=== PATIENT | male | born 1950 | race Caucasian/White ===

== ENCOUNTER 2025-01-27 04:26 | Day surgery (SDC) | payer MEDICARE ==
[2025-01-27] MEDS ORDERED: MEPOLIZUMAB 100 MG VIAL SC SCH (06:00)
[2025-01-27 11:08] VITALS: BP 135/84
[2025-01-27] MEDS ORDERED: Aspir 8181 MG PO (11:09)
[2025-01-27] MEDS ORDERED: ALBU90OI INH (11:09)
[2025-01-27] MEDS ORDERED: BUPR150ER PO (11:10)
[2025-01-27] MEDS ORDERED: ESCI20 PO (11:10)
[2025-01-27] MEDS ORDERED: LOSA25 PO (11:11)
[2025-01-27] MEDS ORDERED: Isosorbide Mono30 MG PO (11:11)
[2025-01-27] MEDS ORDERED: PANT40 PO (11:11)
[2025-01-27] MEDS ORDERED: TAMS.4ER PO (11:12)
[2025-01-27] MEDS ORDERED: NUCALA100 MG SC (11:12)
== END 2025-01-27 11:20 | disposition home or self-care (01) ==
LOC: ATC 04:26
DX: J45.50 Severe persistent asthma, uncomplicated (principal); J82.83 Eosinophilic asthma; J44.89 Other specified chronic obstructive pulmonary disease; G47.33 Obstructive sleep apnea (adult) (pediatric); I25.2 Old myocardial infarction; K21.9 Gastro-esophageal reflux disease without esophagitis; R91.1 Solitary pulmonary nodule; I50.9 Heart failure, unspecified; Z88.8 Allergy status to other drugs, medicaments and biological substances; Z79.82 Long term (current) use of aspirin; Z79.899 Other long term (current) drug therapy
CPT/HCPCS: 96372; J2182

== ENCOUNTER 2025-02-24 03:17 | Day surgery (SDC) | payer MEDICARE ==
[~2025-02-24 03:17] MED LIST: ALBU90OI INH; Aspir 8181 MG PO; BUPR150ER PO; ESCI20 PO; Isosorbide Mono30 MG PO; LOSA25 PO; NUCALA100 MG SC; PANT40 PO; TAMS.4ER PO
[2025-02-24] MEDS ORDERED: MEPOLIZUMAB 100 MG VIAL SC SCH (06:00)
[2025-02-24 11:12] VITALS: BP 146/79
== END 2025-02-24 11:20 | disposition home or self-care (01) ==
LOC: ATC 03:17
DX: J45.50 Severe persistent asthma, uncomplicated (principal); J82.83 Eosinophilic asthma; I50.9 Heart failure, unspecified; G47.33 Obstructive sleep apnea (adult) (pediatric); I25.2 Old myocardial infarction; K21.9 Gastro-esophageal reflux disease without esophagitis; E66.9 Obesity, unspecified; Z68.32 Body mass index [BMI] 32.0-32.9, adult; Z87.891 Personal history of nicotine dependence; Z79.82 Long term (current) use of aspirin; Z79.899 Other long term (current) drug therapy; Z88.8 Allergy status to other drugs, medicaments and biological substances
CPT/HCPCS: 96372; J2182

== ENCOUNTER 2025-05-19 06:21 | Day surgery (SDC) | payer MEDICARE ==
[~2025-05-19 06:21] MED LIST changes: +MEPOLIZUMAB 100 MG VIAL SC SCH
[2025-05-19 10:25] VITALS: BP 128/99
== END 2025-05-19 11:10 | disposition home or self-care (01) ==
LOC: ATC 06:21
DX: J45.50 Severe persistent asthma, uncomplicated (principal); J82.83 Eosinophilic asthma; J44.9 Chronic obstructive pulmonary disease, unspecified; I50.9 Heart failure, unspecified; K21.9 Gastro-esophageal reflux disease without esophagitis; G47.33 Obstructive sleep apnea (adult) (pediatric); E66.9 Obesity, unspecified; Z68.32 Body mass index [BMI] 32.0-32.9, adult; Z87.891 Personal history of nicotine dependence; Z79.82 Long term (current) use of aspirin; Z79.899 Other long term (current) drug therapy; Z88.8 Allergy status to other drugs, medicaments and biological substances
CPT/HCPCS: 96372; J2182

== ENCOUNTER 2025-07-14 09:26 | Day surgery (SDC) | payer MEDICARE ==
[2025-07-14 09:51] VITALS: BP 140/75
== END 2025-07-14 09:56 | disposition home or self-care (01) ==
LOC: ATC 09:26
DX: J82.83 Eosinophilic asthma (principal); Z79.899 Other long term (current) drug therapy; Z87.891 Personal history of nicotine dependence
CPT/HCPCS: 96372; J2182

== ENCOUNTER 2025-09-14 00:52 | Day surgery (SDC) | payer MEDICARE ==
[~2025-09-14 00:52] MED LIST changes: -MEPOLIZUMAB 100 MG VIAL SC SCH
[2025-09-14] MEDS ORDERED: MEPOLIZUMAB 100 MG VIAL SC SCH (06:00)
[2025-09-14 09:33] VITALS: BP 147/74
--- NOTE | 2025-09-14 09:52 | NUR ---
PT GAVE VERBAL PERMISSION FOR STUDENT NURSE TO CARE FOR HIM TODAY.
== END 2025-09-14 09:43 | disposition home or self-care (01) ==
LOC: ATC 00:52
DX: J45.50 Severe persistent asthma, uncomplicated (principal); J82.83 Eosinophilic asthma; I50.9 Heart failure, unspecified; G47.33 Obstructive sleep apnea (adult) (pediatric); I25.2 Old myocardial infarction; J44.9 Chronic obstructive pulmonary disease, unspecified; K21.9 Gastro-esophageal reflux disease without esophagitis; Z87.891 Personal history of nicotine dependence; Z79.82 Long term (current) use of aspirin; Z79.899 Other long term (current) drug therapy; Z88.8 Allergy status to other drugs, medicaments and biological substances
CPT/HCPCS: 96372; 99211; J2182

== ENCOUNTER 2025-10-12 03:38 | Day surgery (SDC) | payer MEDICARE ==
[2025-10-12] MEDS ORDERED: MEPOLIZUMAB 100 MG VIAL SC SCH (06:00)
[2025-10-12 11:10] VITALS: BP 168/72
== END 2025-10-12 11:17 | disposition home or self-care (01) ==
LOC: ATC 03:38
DX: J45.50 Severe persistent asthma, uncomplicated (principal); J82.83 Eosinophilic asthma; I50.9 Heart failure, unspecified; K21.9 Gastro-esophageal reflux disease without esophagitis; G47.33 Obstructive sleep apnea (adult) (pediatric); E66.9 Obesity, unspecified; Z68.32 Body mass index [BMI] 32.0-32.9, adult; Z87.891 Personal history of nicotine dependence; Z79.82 Long term (current) use of aspirin; Z79.899 Other long term (current) drug therapy
CPT/HCPCS: 96372; J2182